=== PATIENT | female | born 1965 | race Asian ===

== ENCOUNTER 2020-11-01 18:56 | Emergency (ER) | payer BC ==
[~2020-11-01] VITALS: Ht 147.3 cm; Wt 42.2 kg
[2020-11-01 19:43] VITALS: BP_SYST 144
--- NOTE | 2020-11-01 19:51 | NUR ---
Patient to ER bed 3 to gown for evaluation. Side rails up. Report given to Debby.
--- NOTE | 2020-11-01 19:57 | NUR ---
ER Dr. Quiñonez at bedside examining patient.
--- NOTE | 2020-11-01 20:10 | NUR ---
Patient came to ER with family. C/O Epigastric pain x 1 week. Patient had epigastric pain for a week. A/O,X4, epigastric pain, radiate to upper back, pain rate 5/10.
--- NOTE | 2020-11-01 20:14 | NUR ---
Patient walked to CT scan room with RT.
[2020-11-01 20:31] LABS: BILIRUBIN,URINE NEGATIVE (NEGATIVE); BLOOD, URINE 1+ (NEGATIVE); CLARITY/URINE CLEAR (CLEAR); COLOR,URINE YELLOW (YELLOW); GLUCOSE,URINE NEGATIVE (NEGATIVE); KETONES,URINE NEGATIVE (NEGATIVE); LEUKOCYTE ESTERASE ,URINE NEGATIVE (NEGATIVE); NITRITE, URINE NEGATIVE (NEGATIVE); PROTEIN URINE NEGATIVE (NEGATIVE); UROBILINOGEN,URINE 0.2 (0.2-1.0)
--- NOTE | 2020-11-01 20:32 | NUR ---
Blood for labwork drawn from foundry worker. Patient tolerated well.
[2020-11-01 20:44] LABS: BACTERIA,URINE None Seen /HPF (None Seen); WBC,URINE NONE SEEN /HPF (0-3); YEAST,URINE None Seen /HPF (None Seen)
[2020-11-01 20:51] LABS: BASOPHILS # (AUTO) 0.1 K/uL (0.0-0.2); BASOPHILS % (AUTO) 0.8 % (0.0-2.0); EOSINOPHILS # (AUTO) 0.4 K/uL (0.0-0.4); EOSINOPHILS % (AUTO) 5.3 % (0.0-4.0); HEMATOCRIT 37.4 % (36-48); HEMOGLOBIN 12.3 g/dL (12.0-16.0); LYMPHOCYTES # (AUTO) 1.6 K/uL (1.0-5.5); LYMPHOCYTES % (AUTO) 23.4 % (20.5-51.5); MEAN CORPUSCULAR HEMOGLOBIN 30 pg (27-31); MEAN CORPUSCULAR HGB CONC 33 % (32-36); MEAN CORPUSCULAR VOLUME 91 fL (79.0-98.0); MONOCYTES # (AUTO) 0.6 K/uL (0.0-1.0); MONOCYTES % (AUTO) 8.8 % (1.7-9.3); NEUTROPHILS # (AUTO) 4.2 K/uL (1.8-7.7); NEUTROPHILS % (AUTO) 61.7 % (40.0-70.0); PLATELET COUNT (AUTO) 218 K/uL (130-430); RED CELL DISTRIBUTION WIDTH 12.8 % (9.0-15.0); WHITE BLOOD COUNT (AUTO) 6.8 K/uL (4.8-10.8)
[2020-11-01 21:17] LABS: CALCIUM 8.7 mg/dL (8.4-11.0); CREATININE 0.78 mg/dL (0.55-1.30); POTASSIUM 3.4 mmol/L (3.5-5.1)
[2020-11-01 21:22] LABS: ALBUMIN 3.5 g/dL (3.4-4.8); TOTAL BILIRUBIN 0.4 mg/dL (0.0-1.0)
[2020-11-01 22:02] VITALS: BP_SYST 144
--- NOTE | 2020-11-01 22:02 | NUR ---
Patient given written and verbal discharge instructions and verbalizes understanding. ER MD discussed with patient the results and treatment provided. Patient in stable condition. ID arm band removed. Rx of pepcid given. Patient educated on pain management and to follow up with PMD. Pain Scale 2/10. Opportunity for questions provided and answered. Medication side effect fact sheet provided.
== END 2020-11-01 22:02 | disposition home or self-care (01) ==
LOC: SED 18:56
DX: R10.13 Epigastric pain (principal)
CPT/HCPCS: 36415; 76376; 80053; 81000-TC; 83690-TC; 85025; 93005; 99285